=== PATIENT | male | born 1945 | race Caucasian/White ===

== ENCOUNTER 2017-12-06 23:15 | Emergency (ER) | payer OTHER ==
[2017-12-06] MEDS ORDERED: ALBUTEROL SULFATE 2.5 MG/3 ML AMPUL.NEB NEB ONE (23:24)
[2017-12-06] MEDS ORDERED: LABETALOL HCL IV ONE (23:24)
[2017-12-06] MEDS ORDERED: SODIUM CHLORIDE 0.9% IV ONE (23:24)
[2017-12-06] MEDS ORDERED: LABETALOL HCL 100MG/20ML VIAL IVP STA (23:32)
[2017-12-06 23:56] LABS: BASOPHILS % 0.8 (0.0-1.5); EOSINOPHILS % 3.4 % (0.0-6.8); MEAN CORPUSCULAR HEMOGLOBIN 33.1 pg (28.0-34.0); MEAN CORPUSCULAR VOLUME 102.3 fl (80.0-100.0); MONOCYTES % 7.2 % (0.0-11.0)
--- NOTE | 2017-12-06 23:56 | ED Physician Documentation ---
General Adult - HISTORIAN Historian: patient, paramedics - HPI Stated Complaint: high BP Chief Complaint: General Adult Additional Information: Pt's SBp this evening was 200. He also has low mid abdominal pain that is cramping. He has burning dysuria. Has been on 3x/week dialysis for 4 months. No fever. Says Dr. Sinclair was supposed to call a script for Cipro for UTI to drug store today, but drug store did not deliver med. He has a new dialysis shunt L upper arm. Per EMS, a Dr. Roth wanted this dialysis patient to come to [facility] ER for SBP 220. Pt says he does not know a Dr. Roth. [facility], where pt resides, did not call report and stated they did not have to give us any more information about patient. [facility] stated pt refused to go to the [place]. Patient says he was told by employee that he had no choice but to come to this ER. When EMS arrived at [facility], patient was being walked by staff to the ambulance. Pt arrives w/o IV or repeat BP. - ROS CONST: denies: fever - PAST HX Past History: COPD, hypertension, other (PVD, pneumonia, BPH, Renal Failure, Anemia) Surgeries/Procedures: other (LE Bypass graft) Allergies/Adverse Reactions: Allergies Allergy/AdvReac Type Severity Reaction Status Date / Time bupropion HCl Allergy Unknown Verified 12/06/17 23:56 [From Wellbutrin] Home Medications: Ambulatory Orders Medication Instructions Recorded Atorvastatin Calcium 20 mg PO PM 10/10/15 Budesonide/Formoterol Fumarate 2 puff IH Q12H 10/10/15 [Symbicort 160-4.5 Mcg Inhaler] Citalopram Hydrobromide [Celexa] 20 mg PO QD 10/10/15 Docusate Sodium [Dok] 200 mg PO DAILY 10/10/15 Ergocalciferol (Vitamin D2) 50,000 unit PO MONTH 10/10/15 [Vitamin D2] Finasteride [Proscar] 5 mg PO DAILY 10/10/15 Furosemide [Lasix] 40 mg PO DAILY 10/10/15 Melatonin [Melatin] 3 mg PO HS 10/10/15 Metoprolol Tartrate [Lopressor] 50 mg PO BID 10/10/15 Pantoprazole Sodium [Protonix] [place] [address] 10/10/15 Tamsulosin HCl [Flomax] 0.4 mg PO 1800 10/10/15 Bumetanide [Bumex] 2 mg PO BID 12/06/17 Fluticasone Propionate [Flonase 1 spray NS Q12H 12/06/17 Nasal [place]] Folic Acid [Folvite] 1 mg PO DAILY 12/06/17 Multivitamin [Tab-A-Zoraida] 1 each PO DAILY 12/06/17 amLODIPine BESYLATE [Norvasc] 10 mg PO 0900 12/06/17 Acetaminophen [Tylenol] 650 mg PO Q6 PRN 12/07/17 Albuterol Sulfate [Proair 90 mcg IH Q6H PRN 12/07/17 Respiclick] Ciprofloxacin HCl [Cipro] 500 mg PO BID 12/07/17 Hydrocodone/Acetaminophen [[place] 1 tab PO Q6H PRN 12/07/17 5-325 Tablet] Ipratropium/Albuterol Sulfate 1 puff IH QID 12/07/17 [Duoneb] Sennosides/Docusate Sodium 1 each PO BID PRN 12/07/17 [Senna-Docusate Sodium Tablet] Sevelamer Carbonate [Renvela] 800 mg PO CMEAL 12/07/17 Warfarin Sodium 3 mg PO [id number] 12/07/17 Warfarin Sodium 4 mg PO [id number] 12/07/17 - SOCIAL HX Smoking History: quit greater than 1 year - FAMILY HX Family History: No (no signif) - VITAL SIGNS Vital Signs: Vital Signs Temp Pulse Resp BP Pulse Ox 148/76 10/10/15 18:23 - REVIEWED ASSESSMENTS Nursing Assessment Reviewed: Yes Vitals Reviewed: Yes Progress - Progress Progress: After three interval doses of Labetalol, patient's SBP remains at 200+. 0150, accepted for transfer to [facility] ER per Dr. Kennedy. ED Results Lab/Radiology - Orders Orders: ED Orders Category Date Time Status Place IV Lock 1T Care 12/06/17 23:[address] IV Lock 1T Care 12/06/17 23:25 Active CBC/PLATELET/DIFF Routine Lab 12/06/17 Ordered CMP Routine Lab 12/06/17 Ordered LIPASE Stat Lab 12/06/17 Ordered URINALYSIS Routine Lab 12/06/17 Ordered Albuterol Sulfate [Ventolin] Med 12/06/17 23:24 Discontinued 2.5 mg NEB NOW ONE Labetalol HCl [Trandate] Med 12/06/17 23:32 Stat 10 mg IVP NOW STA Labetalol HCl [Trandate] 10 mg Med 12/06/17 23:24 Stop Req 0.9 % Sodium Chloride [Sodium Chloride] 250 ml IV NOW General Adult Physical Exam - PHYSICAL EXAM GENERAL APPEARANCE: mild distress EENT: eye inspection normal, ENT inspection normal NECK: normal inspection, supple RESPIRATORY: breath sounds normal (after albuterol neb) CVS: reg rate & rhythm, heart sounds normal ABDOMEN: soft, normal bowel sounds, non-tender BACK: normal inspection, no CVA tenderness SKIN: warm/dry, normal color EXTREMITIES: non-tender, no evidence of injury NEURO: CN's nml as tested, motor nml, sensation nml, cognition normal Discharge Clincal Impression: Hypertension Qualifiers: Hypertension type: unspecified Qualified Code(s): I10 - Essential (primary) hypertension Chronic renal failure Qualifiers: Chronic kidney disease stage: stage 4 (severe) Qualified Code(s): N18.4 - Chronic kidney disease, stage 4 (severe) Referrals: CHANDLER WARE, ANP [Primary Care Provider] - 2 Days Condition: Fair Disposition: XFER SHT-TRM HOSP Decision to Admit: NO Decision Time: 01:50
[2017-12-07] MEDS ORDERED: LABETALOL HCL 100MG/20ML VIAL IVP STA ×2 (00:23→01:08)
[2017-12-07 02:01] VITALS: BP 214/86
[2017-12-07 06:33] LABS: APPEARANCE,URINE CLEAR (CLEAR); COLOR,URINE YELLOW (YELLOW)
[2017-12-07 06:34] LABS: OCCULT BLOOD,URINE TRACE-INTACT (NEGATIVE); PH URINE 8.5 (5.0 - 8.0); UROBILINOGEN URINE 0.2 Eu (0.2-1.0)
== END 2017-12-07 02:15 | disposition short-term general hospital (02) ==
LOC: ED 23:15
DX: I10 Essential (primary) hypertension (principal); N18.4 Chronic kidney disease, stage 4 (severe)
CPT/HCPCS: 80053; 81002; 83690; 85025; 85610; 87086; 93005; J3490; 94640; 96374; 96376; 99284; S1016

== ENCOUNTER 2018-10-07 12:43 | Outpatient (CLI) | payer OTHER ==
--- NOTE | 2018-10-07 13:26 | Diagnostic Imaging Report ---
SUE MARQUEZ [facility] [id number] [facility] [address] [address]. [id number] Report Submission Date: Oct 07, 2018 1:11:52 PM CDT Patient Study Name: HAIDER BEE Date: Oct 07, 2018 12:46:33 PM CDT Modality Type: DX Gender: M Description: CHEST 2VIEW : 47 Institution: [facility] Physician: SUE MARQUEZ If EXAMINATION: CHEST 2VIEW HISTORY: COUGH WITH SHORTNESS OF BREATH X 3-4 WEEKS. NON-SMOKER (Hx) COMPARISON: None FINDINGS: There is biapical pleural-parenchymal scarring as well as minimal bibasilar atelectasis. Otherwise there is no focal consolidation, pleural effusion, or pneumothorax. The cardiomediastinal silhouette is normal. There are age- indeterminate but chronic-appearing right rib fractures, likely the right 6th through 8th ribs. IMPRESSION: No acute pulmonary process. Electronically signed on Oct 07, 2018 1:11:52 PM CDT by: Curtis HOPE
== END 2018-10-07 12:44 ==
LOC: RAD 12:43
PROVIDERS: ATTEND Internal Medicine Nephrology
DX: J18.9 Pneumonia, unspecified organism (principal)
CPT/HCPCS: 71046

== ENCOUNTER 2018-12-02 07:00 | Emergency (ER) | payer OTHER ==
[2018-12-02 18:24] LABS: BASOPHILS % 0.3 % (0.0-1.5); NEUTROPHILS # 12.8 # k/uL (1.4-7.7)
[2018-12-02 18:25] LABS: eGFR (Non-African) 6
== END 2018-12-02 12:30 | disposition short-term general hospital (02) ==
LOC: ED 07:00
DX: J96.00 Acute respiratory failure, unspecified whether with hypoxia or hypercapnia (principal); J18.9 Pneumonia, unspecified organism; N18.6 End stage renal disease
CPT/HCPCS: 36415; 36600; 71020; 80053; 82803; 83605; 85025; 87040; 99285; S1016

== ENCOUNTER 2019-03-10 17:31 | Emergency (ER) | payer OTHER ==
--- NOTE | 2019-03-10 17:35 | ED Physician Documentation ---
Dyspnea - HISTORIAN Historian: patient - HPI Stated Complaint: increased b/p Chief Complaint: General Adult Onset: hours (2) Duration: continues in ED Severity: mild Exacerbated By: nothing Associated Symptoms: none Further Comments: yes (Per [facility] he had an increased b/p. He states he has no pain. He is "always short on air" denies any further complaints) - ROS CONST: no problems - PAST HX Lung Disease: COPD Cardiac Disease: CHF, CAD PE Risk Factors: hypertension Allergies/Adverse Reactions: Allergies Allergy/AdvReac Type Severity Reaction Status Date / Time bupropion HCl Allergy Unknown Verified 03/10/19 17:43 [From Wellbutrin] Home Medications: Ambulatory Orders Medication Instructions Recorded Atorvastatin Calcium 20 mg PO PM 10/10/15 Budesonide/Formoterol Fumarate 2 puff IH Q12H 10/10/15 [Symbicort 160-4.5 Mcg Inhaler] Citalopram Hydrobromide [Celexa] 20 mg PO QD 10/10/15 Docusate Sodium [Dok] 200 mg PO DAILY 10/10/15 Ergocalciferol (Vitamin D2) 50,000 unit PO MONTH 10/10/15 [Vitamin D2] Finasteride [Proscar] 5 mg PO DAILY 10/10/15 Furosemide [Lasix] 40 mg PO DAILY 10/10/15 Melatonin [Melatin] 3 mg PO HS 10/10/15 Metoprolol Tartrate [Lopressor] 50 mg PO BID 10/10/15 Pantoprazole Sodium [Protonix] [place] [id number] 10/10/15 Tamsulosin HCl [Flomax] 0.4 mg PO 1800 10/10/15 Bumetanide [Bumex] 2 mg PO BID 12/06/17 Fluticasone Propionate [Flonase 1 spray NS Q12H 12/06/17 Nasal [place]] Folic Acid [Folvite] 1 mg PO DAILY 12/06/17 Multivitamin [Tab-A-Zoraida] 1 each PO DAILY 12/06/17 amLODIPine BESYLATE [Norvasc] 10 mg PO 0900 12/06/17 Acetaminophen [Tylenol] 650 mg PO Q6 PRN 12/07/17 Albuterol Sulfate [Proair 90 mcg IH Q6H PRN 12/07/17 Respiclick] Ciprofloxacin HCl [Cipro] 500 mg PO BID 12/07/17 Hydrocodone/Acetaminophen [[place] 1 tab PO Q6H PRN 12/07/17 5-325 Tablet] Ipratropium/Albuterol Sulfate 1 puff IH QID 12/07/17 [Duoneb] Sennosides/Docusate Sodium 1 each PO BID PRN 12/07/17 [Senna-Docusate Sodium Tablet] Sevelamer Carbonate [Renvela] 800 mg PO CMEAL 12/07/17 Warfarin Sodium 3 mg PO [id number] 12/07/17 Warfarin Sodium 4 mg PO [id number] 12/07/17 - SOCIAL HX Smoking History: non-smoker Alcohol Use: none Drug Use: none - FAMILY HX Family History: none - VITAL SIGNS Vital Signs: Vital Signs Temp Pulse Resp BP Pulse Ox 214/86 12/07/17 02:15 - REVIEWED ASSESSMENTS Nursing Assessment Reviewed: Yes Vitals Reviewed: Yes Progress - Progress Progress: 1844: discussed current results with Dr Brady will continue to obs pt. Creat is elevated remarkably DG 2034: Discussed findings and will allow pt to return to home DG ED Results Lab/Radiology - Radiology Radiology Impressions: CHEST 1VIEW HISTORY: SOB BEGINNING TODAY. FINDINGS: Erect AP portable chest x-ray dated March 10, 2019 at 1737 demonstrates lungs to be clear of focal infiltrates and expanded bilaterally. Significant improvement in aeration is seen since the prior study dated December 02, 2018. The cardiac silhouette is normal in size and contour with a calcified aortic arch. D egenerative changes of the left shoulder are noted with chronic rotator cuff tear present. ECG leads overlie the chest obscuring detail. IMPRESSION: No active intrathoracic disease seen. Electronically signed on Mar 10, 2019 5:57:59 PM CDT by: Elijah Menendez Dyspnea Physical Exam - EXAM General Appearance: no acute distress, alert EENT: eye inspection normal, no signs of dehydration Neck: nml inspection Respiratory: no resp. distress, breath sounds nml, speaks full sentences CVS: reg. rate & rhythm, no murmur, pulses equal Abdomen: non-tender Skin: color nml, no rash Extremities: non-tender, normal range of motion, no evidence of injury, no edema Neuro/Psych: oriented x3 Discharge Clincal Impression: Hypertension Qualifiers: Hypertension type: unspecified Qualified Code(s): I10 - Essential (primary) hypertension Referrals: Primary Doctor,No [REFERRING] - 2 Days Comments: 1. Metoprolol Titrate 25 mg BID (per Dr Brady) 2. Continue other meds 3. Follow up with PCP in 2-4 days 4. Return to ER for any increased concerns Condition: Stable Disposition: 01 HOME, SELF-CARE Decision to Admit: NO Date of Decison to Admit: 03/10/19 Decision Time: 20:43
[2019-03-10 18:01] LABS: BASOPHILS % 0.3 % (0.0-1.5); NEUTROPHILS # 9.7 # k/uL (1.4-7.7)
--- NOTE | 2019-03-10 18:02 | Diagnostic Imaging Report ---
NESSA ROWLAND [facility] [address] [facility] [address] [place], [place]. [address] Report Submission Date: Mar 10, 2019 5:57:59 PM CDT Patient Study Name: HAIDER BEE Date: Mar 10, 2019 5:37:51 PM CDT Modality Type: DX Gender: M Description: CHEST 1VIEW : 47 Institution: [facility] Physician: NESSA ROWLAND CHEST 1VIEW HISTORY: SOB BEGINNING TODAY. FINDINGS: Erect AP portable chest x-ray dated March 10, 2019 at 1737 demonstrates lungs to be clear of focal infiltrates and expanded bilaterally. Significant improvement in aeration is seen since the prior study dated December 02, 2018. The cardiac silhouette is normal in size and contour with a calcified aortic arch. Degenerative changes of the left shoulder are noted with chronic rotator cuff tear present. ECG leads overlie the chest obscuring detail. IMPRESSION: No active intrathoracic disease seen. Electronically signed on Mar 10, 2019 5:57:59 PM CDT by: Elijah HOPE
[2019-03-10 18:10] LABS: eGFR (Non-African) 11
[2019-03-10] MEDS: hydrALAZINE HCL 20 MG/1 ML IVP ONE ×2 (18:20→19:00)
[2019-03-10] MEDS: IPRATROPIUM/ALBUTEROL SULFATE 3 ML AMPUL.NEB NEB ONE (18:29)
[2019-03-10] MEDS: METOPROLOL TARTRATE 5 MG/5 ML VIAL IV ONE (19:51)
[2019-03-10 21:06] VITALS: BP 185/76
== END 2019-03-10 20:40 | disposition home or self-care (01) ==
LOC: ED 17:31
DX: I10 Essential (primary) hypertension (principal)
CPT/HCPCS: 71045; 80053; 84484; 85025; 85610; 87040; 93005; 94640; 94760; 96374; 96375; 99283; 99284; J0360; J3490; S1016